=== PATIENT | male | born 1990 | race American Indian/Alaskan Native ===

== ENCOUNTER 2016-09-17 13:15 | Emergency (ER) | payer OTHER ==
[2016-09-17 15:03] VITALS: BP 116/70
--- NOTE | 2016-09-17 15:46 | Emergency Department Report ---
ED Eye Problem HPI - General Chief complaint: Eye Problems Stated complaint: RT EYE IRRITATION Time Seen by Provider: 09/17/16 15:40 Source: patient Mode of arrival: Ambulatory Limitations: No Limitations - History of Present Illness chief complaint: other (swelling upper r eye lid) -: Gradual Onset Description: gradual Location: right eye Place: home If Injury: none Severity: moderate Consistency: constant Associated Symptoms: none Treatments Prior to Arrival: none - Related Data Patient Tetanus UTD: Yes Previous Rx's Medication Instructions Recorded Last Taken Type Polymyxin B Sulf/Trimethoprim 2 drop OD QID #1 bottle 09/17/16 Unknown Rx [Polytrim Eye Drops 70793uuojk/0.1%] Allergies Allergy/AdvReac Type Severity Reaction Status Date / Time Penicillins Allergy Unknown Verified 09/17/16 14:55 ED Review of Systems ROS: Stated complaint: RT EYE IRRITATION Other details as noted in HPI Comment: All other systems reviewed and negative Constitutional: no symptoms reported Eyes: as per HPI, eye discharge. denies: eye pain ENT: as per HPI Respiratory: no symptoms reported Cardiovascular: as per HPI Endocrine: no symptoms reported Gastrointestinal: as per HPI Genitourinary: as per HPI Musculoskeletal: as per HPI Skin: as per HPI Neurological: as per HPI Psychiatric: as per HPI Hematological/Lymphatic: as per HPI ED Past Medical Hx - Past Medical History Previous Medical History?: No - Surgical History Past Surgical History?: No - Social History Smoking Status: Never Smoker Substance Use Type: Marijuana - Medications Home Medications: Home Medications Medication Instructions Recorded Confirmed Last Taken Type Polymyxin B Sulf/Trimethoprim 2 drop OD QID #1 bottle 09/17/16 Unknown Rx [Polytrim Eye Drops 13235zippw/0.1%] ED Physical Exam - General Limitations: No Limitations General appearance: alert, in no apparent distress - Head Head exam: Present: atraumatic - Eye Eye exam: Present: normal appearance, PERRL, EOMI. Absent: scleral icterus, conjunctival injection, nystagmus, periorbital swelling, periorbital tenderness - ENT ENT exam: Present: normal exam - Neck Neck exam: Present: normal inspection - Respiratory Respiratory exam: Present: normal lung sounds bilaterally - Cardiovascular Cardiovascular Exam: Present: regular rate - GI/Abdominal GI/Abdominal exam: Present: soft - Rectal Rectal exam: Present: deferred - Extremities Exam Extremities exam: Present: normal inspection - Back Exam Back exam: Present: normal inspection - Neurological Exam Neurological exam: Present: alert, altered, oriented X3 - Psychiatric Psychiatric exam: Present: normal affect, normal mood - Skin Skin exam: Present: warm, dry, intact, normal color ED Course Vital Signs 09/17/16 14:55 Temperature 98.4 F Pulse Rate 90 Respiratory 16 Rate Blood Pressure 116/70 O2 Sat by Pulse 99 Oximetry ED Medical Decision Making - Medical Decision Making vss nad no trauma conjunctiva wnl upper eye lid hordulum no contacts no pain w eom perrl no photophobia no urti Critical care attestation.: If time is entered above; I have spent that time in minutes in the direct care of this critically ill patient, excluding procedure time. ED Disposition Clinical Impression: Hordeolum externum (stye) Disposition: DISCHARGED TO HOME OR SELFCARE Is pt being admited?: No Does the pt Need Aspirin: No Condition: Stable Instructions: Marcy (ED) Additional Instructions: warm compresses to eye med as ordered follow up opthamology Prescriptions: Polymyxin B Sulf/Trimethoprim [Polytrim Eye Drops 54223mfdbn/0.1%] 2 drop OD QID #1 bottle Referrals: PRIMARY CARE, [Primary Care Provider] - 3-5 Days Time of Disposition: 15:44
== END 2016-09-17 15:59 | disposition home or self-care (01) ==
LOC: ED 13:15
DX: H00.011 Hordeolum externum right upper eyelid (principal); F12.10 Cannabis abuse, uncomplicated; Z88.0 Allergy status to penicillin
CPT/HCPCS: 99282

== ENCOUNTER 2019-07-22 11:31 | Emergency (ER) | payer SELFPAY | END 2019-07-22 14:15 | disposition left against medical advice (07) | LOC: ED 11:31 | DX: Z04.1 Encounter for examination and observation following transport accident (principal); Z53.21 Procedure and treatment not carried out due to patient leaving prior to being seen by health care provider ==

== ENCOUNTER 2019-11-20 11:15 | Emergency (ER) | payer SELFPAY ==
[2019-11-20 11:23] VITALS: BP 130/84
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
== END 2019-11-20 11:34 | disposition left against medical advice (07) ==
LOC: ED 11:15
DX: S16.1XXA Strain of muscle, fascia and tendon at neck level, initial encounter (principal); S39.012A Strain of muscle, fascia and tendon of lower back, initial encounter; Z53.21 Procedure and treatment not carried out due to patient leaving prior to being seen by health care provider; V49.49XA Driver injured in collision with other motor vehicles in traffic accident, initial encounter; Y93.89 Activity, other specified; Y92.410 Unspecified street and highway as the place of occurrence of the external cause; Y99.8 Other external cause status

== ENCOUNTER 2020-07-23 12:49 | Emergency (ER) | payer SELFPAY ==
[2020-07-23] MEDS ORDERED: ALBUTEROL 2.5 MG/3 ML NEBU IH ONE (13:02)
[2020-07-23] MEDS ORDERED: IPRATROPIUM 0.02% NEBU 2.5 ML IH ONE (13:02)
[2020-07-23] MEDS ORDERED: dexAMETHasone 20 MG/5 ML VIAL IM ONE (13:02)
[2020-07-23 13:03] VITALS: BP 140/100
--- NOTE | 2020-07-23 13:40 | Emergency Department Report ---
- General Chief Complaint: Upper Respiratory Infection Stated Complaint: CONGESTION/HEADACHE/COUGH Time Seen by Provider: 07/23/20 12:54 Source: patient Mode of arrival: Ambulatory Limitations: No Limitations - History of Present Illness Initial Comments: Patient is a 29-year-old male presents emergency room complaints of URI symptoms that began 3 days ago. He has associated cough with mucus production, chest congestion, headache, chills, diarrhea. He denies any vomiting, fever, sore throat, ear pain, shortness of breath, chest pain. No past medical history. Allergy to penicillin. He denies any sick contacts or recent travel. He endorses tobacco and marijuana use. - Related Data Previous Rx's Medication Instructions Recorded Last Taken Type Polymyxin B Sulf/Trimethoprim 2 drop OD QID #1 bottle 09/17/16 Unknown Rx [Polytrim Eye Drops 02482bxsjz/0.1%] Albuterol Sulfate [Proventil Hfa] 6.7 gm IH TID PRN #1 hfa.aer.ad 07/23/20 Unknown Rx Azithromycin [Zithromax TAB] 250 mg PO QDAY 5 Days #6 tablet 07/23/20 Unknown Rx Benzonatate [Tessalon Perles] 100 mg PO Q8HR PRN #14 capsule 07/23/20 Unknown Rx Prednisone [predniSONE 10 mg 10 mg PO .TAPER #1 tab.ds.pk 07/23/20 Unknown Rx (6-Day Pack, 21 Tabs)] Allergies Allergy/AdvReac Type Severity Reaction Status Date / Time Penicillins Allergy Unknown Verified 07/22/19 11:36 ED Review of Systems ROS: Stated complaint: CONGESTION/HEADACHE/COUGH Other details as noted in HPI Comment: All other systems reviewed and negative ED Past Medical Hx - Past Medical History Previous Medical History?: No - Surgical History Past Surgical History?: No - Social History Smoking Status: Never Smoker Substance Use Type: None - Medications Home Medications: Home Medications Medication Instructions Recorded Confirmed Last Taken Type Polymyxin B Sulf/Trimethoprim 2 drop OD QID #1 bottle 09/17/16 Unknown Rx [Polytrim Eye Drops 48653ypmxy/0.1%] Albuterol Sulfate [Proventil Hfa] 6.7 gm IH TID PRN #1 hfa.aer.ad 07/23/20 Unknown Rx Azithromycin [Zithromax TAB] 250 mg PO QDAY 5 Days #6 tablet 07/23/20 Unknown Rx Benzonatate [Tessalon Perles] 100 mg PO Q8HR PRN #14 capsule 07/23/20 Unknown Rx Prednisone [predniSONE 10 mg 10 mg PO .TAPER #1 tab.ds.pk 07/23/20 Unknown Rx (6-Day Pack, 21 Tabs)] ED Physical Exam - General Limitations: No Limitations General appearance: alert, in no apparent distress - Head Head exam: Present: atraumatic, normocephalic - Eye Eye exam: Present: normal appearance - ENT ENT exam: Present: mucous membranes moist - Respiratory Respiratory exam: Present: wheezes, rhonchi. Absent: respiratory distress, rales, stridor, chest wall tenderness, accessory muscle use, decreased breath sounds, prolonged expiratory - Cardiovascular Cardiovascular Exam: Present: regular rate, normal rhythm, normal heart sounds. Absent: systolic murmur, diastolic murmur, rubs, gallop - Neurological Exam Neurological exam: Present: alert, oriented X3 - Psychiatric Psychiatric exam: Present: normal affect, normal mood - Skin Skin exam: Present: warm, dry, intact ED Course Vital Signs 07/23/20 07/23/20 07/23/20 12:51 13:02 13:46 Temperature 98.7 F Pulse Rate 102 H 89 Pulse Rate [ 89 Bilateral Upper Lobe] Respiratory 18 Rate Respiratory 20 Rate [Bilateral Upper Lobe] Blood Pressure 188/107 140/100 [Right] O2 Sat by Pulse 99 97 Oximetry ED Medical Decision Making - Lab Data Vital Signs 07/23/20 07/23/20 07/23/20 12:51 13:02 13:46 Temperature 98.7 F Pulse Rate 102 H 89 Pulse Rate [ 89 Bilateral Upper Lobe] Respiratory 18 Rate Respiratory 20 Rate [Bilateral Upper Lobe] Blood Pressure 188/107 140/100 [Right] O2 Sat by Pulse 99 97 Oximetry - Radiology Data Radiology results: report reviewed Ordering Physician: MARY ARANA Date of Service: 07/23/20 Procedure(s): XR chest routine 2V Accession Number(s): [id number] cc: MARY ARANA Fluoro Time In Minutes: CHEST 2 VIEWS INDICATION / CLINICAL INFORMATION: cough, wheezing, rhonchi. COMPARISON: None available. FINDINGS: SUPPORT DEVICES: None. HEART / MEDIASTINUM: No significant abnormality. LUNGS / PLEURA: No significant pulmonary or pleural abnormality. No pneumothorax. ADDITIONAL FINDINGS: No significant additional findings. IMPRESSION: 1. No acute findings. Signer Name: Al Barrera MD Signed: 07/23/2020 1:48 PM Workstation Name: [id number] Transcribed By: MUSTAPHA Dictated By: RYAN BARRERA MD Electronically Authenticated By: RYAN BARRERA MD Signed Date/Time: 07/23/201347 DD/ 46 TD/TT: - Medical Decision Making Patient is a 29-year-old male presents emergency room complaints of URI symptoms that began 3 days ago. He has associated cough with mucus production, chest congestion, headache, chills, diarrhea. He denies any vomiting, fever, sore throat, ear pain, shortness of breath, chest pain. No past medical history. Allergy to penicillin. He denies any sick contacts or recent travel. He endorses tobacco and marijuana use. Initial vitals with mild tachycardia and elevated blood pressure which improved upon repeat. On exam: Patient has a wheezing and rhonchi throughout, no rales, no respiratory distress, no accessory muscle use. Chest x-ray: 1. No acute findings. Symptoms likely related to acute bronchitis. Discussed smoking cessation with patient. Patient is presenting with the symptoms during COVID-19 pandemic, discussed COVID-19 with patient, discussed return precautions, discussed outpatient testing, discussed self quarantine. Patient given prescription for albuterol inhaler, Tessalon Perles, azithromycin, prednisone. Advised patient Please stop smoking. Take medication as prescribed. Please increase your fluid intake over the next several days. May take Tylenol as needed for fever or body aches. Follow-up with a primary care doctor for reexamination. Return to emergency room immediately for any new or worsening symptoms including but not limited to difficulty breathing, shortness of breath, severe chest pain, unable to tolerate by mouth intake, etc. Please self quarantine for 10 days from the onset of your symptoms. Please do not go out in public. If you are around others at home please wear a mask. If you need to cough or sneeze please do so in a napkin and immediately throw it away and immediately wash your hands. Wash your hands frequently. Wipe everything down. Recommend for you to get COVID-19 testing, may have this done at primary care doctor, health department, [facility], etc. Please follow-up with your primary care doctor regarding the elevation in your blood pressure during today's visit, eat a low-sodium diet, increase your water intake, incorporate 30 to 60 minutes daily exercise, keep a blood pressure log and take this to the primary care doctor Critical care attestation.: If time is entered above; I have spent that time in minutes in the direct care of this critically ill patient, excluding procedure time. ED Disposition Clinical Impression: Tobacco abuse, Elevated blood pressure reading Acute bronchitis Qualifiers: Bronchitis organism: unspecified organism Qualified Code(s): J20.9 - Acute bronchitis, unspecified Disposition: DC-01 TO HOME OR SELFCARE Is pt being admited?: No Does the pt Need Aspirin: No Condition: Stable Instructions: Steps to Quit Smoking, Acute Bronchitis, Adult, Acute Bronchitis (ED) Additional Instructions: Please stop smoking. Take medication as prescribed. Please increase your fluid intake over the next several days. May take Tylenol as needed for fever or body aches. Follow-up with a primary care doctor for reexamination. Return to emergency room immediately for any new or worsening symptoms including but not limited to difficulty breathing, shortness of breath, severe chest pain, unable to tolerate by mouth intake, etc. Please self quarantine for 10 days from the onset of your symptoms. Please do not go out in public. If you are around others at home please wear a mask. If you need to cough or sneeze please do so in a napkin and immediately throw it away and immediately wash your hands. Wash your hands frequently. Wipe everything down. Recommend for you to get COVID-19 testing, may have this done at primary care doctor, health dep artment, [facility], etc. Please follow-up with your primary care doctor regarding the elevation in your blood pressure during today's visit, eat a low-sodium diet, increase your water intake, incorporate 30 to 60 minutes daily exercise, keep a blood pressure log and take this to the primary care doctor Prescriptions: Prednisone [predniSONE 10 mg (6-Day Pack, 21 Tabs)] 10 mg PO .TAPER #1 tab.ds.pk Albuterol Sulfate [Proventil Hfa] 6.7 gm IH TID PRN #1 hfa.aer.ad PRN Reason: shortness of breath/wheezing Benzonatate [Tessalon Perles] 100 mg PO Q8HR PRN #14 capsule PRN Reason: cough Azithromycin [Zithromax TAB] 250 mg PO QDAY 5 Days #6 tablet Referrals: PRIMARY CAREMD [Primary Care Provider] - 2-3 Days VU TEE MD [Staff Physician] - 2-3 Days [facility] [Provider Group] - 2-3 Days Forms: Work/School Release Form(ED) Time of Disposition: 14:38 Print Language: UKRAINIAN
--- NOTE | 2020-07-23 13:52 | XRay Report ---
CHEST 2 VIEWS INDICATION / CLINICAL INFORMATION: cough, wheezing, rhonchi. COMPARISON: None available. FINDINGS: SUPPORT DEVICES: None. HEART / MEDIASTINUM: No significant abnormality. LUNGS / PLEURA: No significant pulmonary or pleural abnormality. No pneumothorax. ADDITIONAL FINDINGS: No significant additional findings. IMPRESSION: 1. No acute findings. Signer Name: Al Myers MD Signed: 07/23/2020 1:48 PM Workstation Name: [id number]
== END 2020-07-23 14:54 | disposition home or self-care (01) ==
LOC: ED 12:49
DX: J20.9 Acute bronchitis, unspecified (principal); R03.0 Elevated blood-pressure reading, without diagnosis of hypertension; Z72.0 Tobacco use; Z79.899 Other long term (current) drug therapy; Z88.0 Allergy status to penicillin
CPT/HCPCS: 71046; 94640; 96372; 99283; J1100; 94644